=== PATIENT | male | born 1965 | race Caucasian/White ===

== ENCOUNTER 2016-09-13 13:37 | Outpatient (CLI) | payer OTHER ==
[2016-05-07 09:27] VITALS: BP 128/79
== END 2016-09-13 13:47 ==
LOC: CARD 13:37
PROVIDERS: ATTEND Internal Medicine Cardiovascular Disease
DX: I50.9 Heart failure, unspecified (principal)
CPT/HCPCS: 99213

== ENCOUNTER 2016-10-25 10:28 | Outpatient (CLI) | payer OTHER ==
[2016-05-07 09:27] VITALS: BP 128/79
== END 2016-10-25 11:00 ==
LOC: CARD 10:28
PROVIDERS: ATTEND Internal Medicine Cardiovascular Disease
DX: I50.9 Heart failure, unspecified (principal)
CPT/HCPCS: 99214

== ENCOUNTER 2016-11-08 11:38 | Outpatient (CLI) | payer OTHER ==
[2016-05-07 09:27] VITALS: BP 128/79
== END 2016-11-08 11:40 ==
LOC: CARD 11:38
PROVIDERS: ATTEND Internal Medicine Cardiovascular Disease
DX: I50.9 Heart failure, unspecified (principal)
CPT/HCPCS: 99214

== ENCOUNTER 2016-12-23 02:15 | Emergency (ER) | payer OTHER ==
[2016-12-23 02:33] VITALS: BP 130/80
--- NOTE | 2016-12-23 02:33 | ED Physician Documentation ---
General Adult - HISTORIAN Historian: patient - HPI Stated Complaint: dysuria Chief Complaint: General Adult Timing: still present Further Comments: yes (Pt is a 51 yo male with dysuria, mild retention x 2 days. No n/v. Malaise. Pt denies risk of STD's.) - ROS CONST: other (malaise) EYES/ENT: none CVS/RESP: none GI/: problems urinating MS/SKIN/LYMPH: none - PAST HX Past History: other (HTN, HLD) Allergies/Adverse Reactions: Allergies Allergy/AdvReac Type Severity Reaction Status Date / Time tramadol Allergy Verified 12/23/16 02:40 Home Medications: Ambulatory Orders Medication Instructions Recorded Aspirin [Ecotrin] 81 mg PO DAILY #30 tablet. 12/14/13 Furosemide [Furosemide] 40 mg PO DAILY 05/07/16 Carvedilol [Coreg] 25 mg PO BID 12/23/16 Clopidogrel Bisulfate [Clopidogrel] 75 mg PO D 12/23/16 Losartan Potassium [Losartan 50 mg PO D 12/23/16 Potassium] Lovastatin 20 mg PO D 12/23/16 Spironolactone [Spironolactone] 25 mg PO D 12/23/16 Sulfamethoxazole/Trimethoprim 1 each PO DAILY #14 tablet 12/23/16 [Bactrim Ds] - SOCIAL HX Smoking History: cigarettes - FAMILY HX Family History: No - VITAL SIGNS Vital Signs: Vital Signs Temp Pulse Resp BP Pulse Ox 128/79 05/07/16 09:22 - REVIEWED ASSESSMENTS Nursing Assessment Reviewed: Yes Vitals Reviewed: Yes Progress - Progress Progress: Rocephin 1 gm IM Rx Bactrim DS po bid x 7 days, 1st dose in ER. General Adult Physical Exam - PHYSICAL EXAM GENERAL APPEARANCE: no distress EENT: pharynx normal NECK: normal inspection, supple RESPIRATORY: no resp distress, chest non-tender, breath sounds normal CVS: reg rate & rhythm, heart sounds normal ABDOMEN: soft, normal bowel sounds BACK: normal inspection, no CVA tenderness SKIN: warm/dry, normal color EXTREMITIES: non-tender, normal range of motion, no evidence of injury NEURO: oriented X3, motor nml, sensation nml Discharge Clincal Impression: UTI (urinary tract infection) Qualifiers: Urinary tract infection type: site unspecified Hematuria presence: without hematuria Qualified Code(s): N39.0 - Urinary tract infection, site not specified Prescriptions: Sulfamethoxazole/Trimethoprim [Bactrim Ds] 1 each PO DAILY #14 tablet Referrals: George Sanchez MD [Primary Care Provider] - Home Medications: Ambulatory Orders Aspirin [Ecotrin] 81 mg PO DAILY #30 tablet. 12/14/13 Furosemide [Furosemide] 40 mg PO DAILY 05/07/16 Carvedilol [Coreg] 25 mg PO BID 12/23/16 Clopidogrel Bisulfate [Clopidogrel] 75 mg PO D 12/23/16 Losartan Potassium [Losartan Potassium] 50 mg PO D 12/23/16 Lovastatin 20 mg PO D 12/23/16 Spironolactone [Spironolactone] 25 mg PO D 12/23/16 Sulfamethoxazole/Trimethoprim [Bactrim Ds] 1 each PO DAILY #14 tablet 12/23/16 Condition: Good Disposition: 01 HOME, SELF-CARE Decision to Admit: NO Decision Time: 03:27
[2016-12-23 02:56] LABS: BASOPHILS % 0.2 (0.0-1.5); MEAN CORPUSCULAR HEMOGLOBIN 30.4 pg (28.0-34.0); MEAN CORPUSCULAR VOLUME 93.4 fl (80.0-100.0)
[2016-12-23 03:04] LABS: EOSINOPHILS % 0.2 % (0.0-6.8); MONOCYTES % 4.4 % (0.0-11.0); NEUTROPHILS # 10.7 # k/uL (1.4-7.7)
[2016-12-23 03:18] LABS: eGFR (African) > 60; eGFR (Non-African) > 60
[2016-12-23] MEDS ORDERED: SULFAMETHOXAZOLE/TRIMETHOPRIM 1 EACH TABLET PO ONE ×2 (03:23)
[2016-12-23] MEDS ORDERED: cefTRIAXone SODIUM 1 GM VIAL IM ONE (03:27)
[2016-12-23] MEDS ORDERED: Lidocaine 1% 5ml(IM or SUTURE)(PAIN CLINIC) IJ ONE (03:28)
[2016-12-23] MEDS ORDERED: Lidocaine 1% 5ml(IM or SUTURE)(PAIN CLINIC) ONE (03:30)
[2016-12-23 05:35] LABS: APPEARANCE,URINE CLOUDY (CLEAR); COLOR,URINE AMBER (YELLOW)
[2016-12-23 05:36] LABS: OCCULT BLOOD,URINE 2+ (NEGATIVE); PH URINE 5.5 (5.0 - 8.0)
== END 2016-12-23 03:40 | disposition home or self-care (01) ==
LOC: ED 02:15
DX: N39.0 Urinary tract infection, site not specified (principal)
CPT/HCPCS: 80053; 81002; 85025; 87086; 87186; 96372; 99283; A9270; J0696

== ENCOUNTER 2016-12-24 13:33 | Emergency (ER) | payer OTHER ==
[2016-12-24 14:07] LABS: APPEARANCE,URINE CLOUDY (CLEAR); COLOR,URINE YELLOW (YELLOW); OCCULT BLOOD,URINE TRACE-INTACT (NEGATIVE); PH URINE 5.5 (5.0 - 8.0)
--- NOTE | 2016-12-24 14:46 | ED Physician Documentation ---
Male Genitourinary Problems - HISTORIAN Historian: patient - HPI Stated Complaint: Unable to Urinate Chief Complaint: Male Genitourinary Problems Onset: hours (last able to urinate 18 hours ago) Duration: continues in ED Severity: moderate Further Comments: yes (Arely was diagnosed of having a UTI on Monday was started) - Associated Symptoms Problems Urinating: none, discomfort w/ urination, other (urinary) Testicular Pain: none Testicular Swelling: none Penile Pain: No Penile Swelling: No - ROS CONST: denies: fever, chills GI/: denies: nausea, vomiting - PAST HX Past History: enlarged prostate, hypertension, other (CAD) Cardiac Disease: CAD Surgeries/Procedures: TURP (times two.), other (PCI) Immunizations: referred to PCP Allergies/Adverse Reactions: Allergies Allergy/AdvReac Type Severity Reaction Status Date / Time tramadol Allergy Verified 12/23/16 02:40 Home Medications: Ambulatory Orders Medication Instructions Recorded Aspirin [Ecotrin] 81 mg PO DAILY #30 tablet. 12/14/13 Furosemide [Furosemide] 40 mg PO DAILY 05/07/16 Carvedilol [Coreg] 25 mg PO BID 12/23/16 Clopidogrel Bisulfate [Clopidogrel] 75 mg PO D 12/23/16 Losartan Potassium [Losartan 50 mg PO D 12/23/16 Potassium] Lovastatin 20 mg PO D 12/23/16 Spironolactone [Spironolactone] 25 mg PO D 12/23/16 Sulfamethoxazole/Trimethoprim 1 each PO DAILY #14 tablet 12/23/16 [Bactrim Ds] - SOCIAL HX Smoking History: less than 1 pack/day Alcohol Use: none Drug Use: none - FAMILY HX Family History: none - VITAL SIGNS Vital Signs: Vital Signs Temp Pulse Resp BP Pulse Ox 97.8 F 81 16 115/78 97 12/24/16 13:35 12/24/16 16:25 12/24/16 16:25 12/24/16 16:25 12/24/16 16:25 - REVIEWED ASSESSMENTS Nursing Assessment Reviewed: Yes Vitals Reviewed: Yes Progress - Results/Orders Results/Orders: when putting the cath in met resistance, had some difficulties with placement ED Results Lab/Radiology - Lab Results Lab Results: Lab Results 12/24/16 13:55 Urine Color Yellow (YELLOW) Urine Appearance Cloudy (CLEAR) Urine pH 5.5 (5.0 - 8.0) Ur Specific [place] 1.025 (1.010-1.030) Urine Protein Negative mg/dL mg/dL (NEGATIVE) Urine Ketones Negative mg/dL mg/dL (NEGATIVE) Urine Occult Blood Trace-intact H (NEGATIVE) Urine Nitrite Negative (NEGATIVE) Urine Bilirubin Negative (NEGATIVE) Urine Urobilinogen 1.0 Eu Eu (0.2-1.0) Ur Leukocyte Esterase 1+ H (NEGATIVE) Urine Glucose Negative mg/dL mg/dL (NEGATIVE) - Orders Orders: ED Orders Category Date Time Status Hernandez [Urinary catheterization] 1T Care 12/24/16 14:04 Active PSA PROSTATE SPECIFIC ANTIGEN Routine Lab 12/24/16 Ordered UA MACRO DIP ONLY Routine Lab 12/24/16 13:55 Completed URINALYSIS Routine Lab 12/24/16 14:58 Ordered Male Genitourinary Problems - EXAM General Appearance: no acute distress, alert Abdomen: non-tender, no organomegaly, tenderness (suprapubic) EENT: eye inspection normal, ENT inspection normal, pharynx normal, no signs of dehydration Neck: nml inspection Respiratory: no resp distress, chest non-tender, breath sounds normal. No: wheezes, rales, rhonchi CVS: reg rate & rhythm, heart sounds normal, equal pulses Back: non-tender, painless ROM Extremities: normal range of motion, non-tender, normal inspection Neuro/Psych: oriented X3, mood/affect nml, cognition normal Skin: warm/dry, normal color Discharge Clincal Impression: History of urinary retention Referrals: George Sanchez MD [Primary Care Provider] - 2 Days Additional Instructions: I will set up an appointment with a urologist for you. Leave hernandez cath in place , if you have any problems withit to let me know. Home Medications: Ambulatory Orders Aspirin [Ecotrin] 81 mg PO DAILY #30 tablet. 12/14/13 Furosemide [Furosemide] 40 mg PO DAILY 05/07/16 Carvedilol [Coreg] 25 mg PO BID 12/23/16 Clopidogrel Bisulfate [Clopidogrel] 75 mg PO D 12/23/16 Losartan Potassium [Losartan Potassium] 50 mg PO D 12/23/16 Lovastatin 20 mg PO D 12/23/16 Spironolactone [Spironolactone] 25 mg PO D 12/23/16 Sulfamethoxazole/Trimethoprim [Bactrim Ds] 1 each PO DAILY #14 tablet 12/23/16 Condition: Stable Decision to Admit: NO Date of Decison to Admit: 12/24/16 Decision Time: 16:07
[2016-12-24 16:28] VITALS: BP 115/78
== END 2016-12-24 16:10 ==
LOC: ED 13:33
DX: R33.9 Retention of urine, unspecified (principal)
CPT/HCPCS: 51702; 81002; 99283

== ENCOUNTER 2017-06-13 13:54 | Outpatient (CLI) | payer OTHER | END 2017-06-13 13:55 | LOC: CARD 13:54 | PROVIDERS: ATTEND Internal Medicine Cardiovascular Disease | DX: I50.20 Unspecified systolic (congestive) heart failure (principal); I25.10 Atherosclerotic heart disease of native coronary artery without angina pectoris; Q21.1 Atrial septal defect; I72.8 Aneurysm of other specified arteries; I25.3 Aneurysm of heart; Z72.0 Tobacco use; E78.5 Hyperlipidemia, unspecified; I10 Essential (primary) hypertension; G47.30 Sleep apnea, unspecified; E66.9 Obesity, unspecified; Z79.899 Other long term (current) drug therapy | CPT/HCPCS: 99213 ==

== ENCOUNTER 2017-07-09 21:04 | Emergency (ER) | payer OTHER ==
[2017-07-09] MEDS ORDERED: FUROSEMIDE 20 MG/2 ML VIAL IVP ONE (21:26)
[2017-07-09] MEDS ORDERED: [UNRECOGNIZED DRUG - OTHER] IV ONE (21:29)
[2017-07-09] MEDS ORDERED: SODIUM CHLORIDE 0.9% IV ONE (21:29)
[2017-07-09] MEDS: ENALAPRILAT DIHYDRATE 1.25 MG/1 ML ONE ×2 (21:34→21:40)
[2017-07-09 21:43] LABS: BASOPHILS % 0.4 (0.0-1.5); EOSINOPHILS % 1.1 % (0.0-6.8); MEAN CORPUSCULAR HEMOGLOBIN 29.2 pg (28.0-34.0); MEAN CORPUSCULAR VOLUME 92.5 fl (80.0-100.0); MONOCYTES % 4.4 % (0.0-11.0); NEUTROPHILS # 5.8 # k/uL (1.4-7.7)
[2017-07-09 22:11] LABS: eGFR (African) > 60; eGFR (Non-African) > 60
--- NOTE | 2017-07-09 22:36 | ED Physician Documentation ---
Dyspnea - HISTORIAN Historian: patient - HPI Stated Complaint: SOA Chief Complaint: Dyspnea Additional Information: out of meds x 1 week-did have 2-20mg lasix which took this pm w/ diuresis but concern due to leg edema and sob-out of meds bacause of finances Onset: days ago (this pm) Duration: continues in ED, better Initiating Event: out of meds. denies: upper respiratory illness, sports, exercise, environmental allergy Severity: mild, moderate Exacerbated By: exertion Associated Symptoms: none - ROS CONST: no problems EYES/ENT: denies: problems with vision GI/: none NEURO/PSYCH: denies: headache MS/SKIN/LYMPH: none, other (leg edema) - PAST HX Lung Disease: COPD, other (ischemic heart disease HTN fluid retentin) PE Risk Factors: hypertension, leg swelling Surgeries/Procedures: cardiac cath, cardiac stent Allergies/Adverse Reactions: Allergies Allergy/AdvReac Type Severity Reaction Status Date / Time tramadol Allergy Verified 07/09/17 21:30 Home Medications: Ambulatory Orders Medication Instructions Recorded Aspirin [Ecotrin] 81 mg PO DAILY #30 tablet. 12/14/13 Furosemide [Furosemide] 60 mg PO DAILY 05/07/16 Carvedilol [Coreg] 25 mg PO BID 12/23/16 Clopidogrel Bisulfate [Clopidogrel] 75 mg PO D 12/23/16 Losartan Potassium [Losartan 50 mg PO D 12/23/16 Potassium] Lovastatin 20 mg PO D 12/23/16 Spironolactone [Spironolactone] 25 mg PO D 12/23/16 - SOCIAL HX Smoking History: less than 1 pack/day Alcohol Use: none Drug Use: none - FAMILY HX Family History: no significant history - VITAL SIGNS Vital Signs: Vital Signs Temp Pulse Resp BP Pulse Ox 98.1 F 104 H 20 147/100 95 07/09/17 21:05 07/09/17 21:29 07/09/17 21:05 07/09/17 21:05 07/09/17 21:05 - REVIEWED ASSESSMENTS Nursing Assessment Reviewed: Yes Vitals Reviewed: Yes ED Results Lab/Radiology - Lab Results Lab Results: Lab Results 07/09/17 07/09/17 07/09/17 21:33 21:33 21:33 WBC 9.60 K/ul K/ul (4.00-12.00) RBC 4.94 M/ul M/ul (3.90-5.20) Hgb 14.5 g/dL g/dL (12.0-18.0) Hct 45.7 % % (37.0-53.0) MCV 92.5 fl fl (80.0-100.0) MCH 29.2 pg pg (28.0-34.0) MCHC 31.6 g/dL g/dL (30.0-36.0) RDW 13.6 % % (11.3-14.3) Plt Count 238 K/mm3 K/mm3 (130-400) Neut % (Auto) 60.0 % % (39.0-79.0) Lymph % (Auto) 33.0 % % (16.0-50.0) [place] % (Auto) 4.4 % % (0.0-11.0) Eos % (Auto) 1.1 % % (0.0-6.8) Baso % (Auto) 0.4 (0.0-1.5) Neut # (Auto) 5.8 # k/uL # k/uL (1.4-7.7) Lymph # (Auto) 3.2 # k/uL # k/uL (0.6-4.0) [place] # (Auto) 0.4 # k/uL # k/uL (0.0-0.9) Eos # (Auto) 0.1 # k/uL # k/uL (0.0-0.6) Baso # (Auto) 0.0 # k/uL # k/uL (0.0-0.5) Reactive Lymphs % 1.1 % % (0.0-5.0) Reactive Lymphs # 0.1 # k/uL # k/uL (0.0-0.8) PT 10.4 Seconds Seconds (9.4-11.6) INR 0.99 (0.9-1.2) Sodium 135 mmol/L L mmol/L (136-145) Potassium 3.8 mmol/L mmol/L (3.5-5.1) Chloride 100 mmol/L mmol/L (98-107) Carbon Dioxide 26 mmol/L mmol/L (22-30) BUN 13 mg/dL mg/dL (9-20) Creatinine 0.80 mg/dL mg/dL (0.66-1.25) Estimated Creat Clear 186 Est GFR ( Amer) > 60 (60 - ) Est GFR (Non-Af Amer) > 60 (60 - ) Glucose 111 mg/dL H mg/dL (74-106) Calcium 8.4 mg/dL mg/dL (8.4-10.2) Total Bilirubin 0.2 mg/dL mg/dL (0.2-1.3) AST 21 U/L U/L (15-46) ALT 32 U/L U/L (13-69) Alkaline Phosphatase 127 U/L H U/L (38-126) Total Protein 7.2 g/dL g/dL (6.3-8.2) Albumin 3.7 g/dL g/dL (3.5-5.0) - Orders Orders: ED Orders Category Date Time Status Continuous EKG monitoring Q1H Care 07/09/17 21:[address] IV Lock 1T Care 07/09/17 21:26 Active CHEST P.A.&LAT 2 VIEWS [RAD] Stat Exams 07/09/17 Taken CBC/PLATELET/DIFF Routine Lab 07/09/17 21:33 Completed CMP Routine Lab 07/09/17 21:33 Completed PT-INR Routine Lab 07/09/17 21:33 Completed Enalaprilat Dihydrate [Vasotec] Med 07/09/17 21:31 Discontinued 1.25 mg .ROUTE .STK-MED ONE Enalaprilat Dihydrate [Vasotec] 1.25 mg Med 07/09/17 21:29 Ordered 0.9 % Sodium Chloride [Sodium Chloride] 50 ml IV NOW Furosemide [Lasix] Med 07/09/17 21:26 Discontinued 20 mg IVP NOW ONE Dyspnea Physical Exam - EXAM General Appearance: mild distress EENT: eye inspection normal Neck: nml inspection Respiratory: breath sounds nml, speaks full sentences (pt hard of hearing) CVS: reg. rate & rhythm Abdomen: non-tender, no distention Skin: color nml, no rash Extremities: edema Neuro/Psych: oriented x3, motor nml, mood/affect nml Discharge Clincal Impression: unc htn, fluid retention, meds non compliance Referrals: Primary Doctor,No [Primary Care Provider] - 2 Days Comments: pt sig improved - urinary output sig - breathing better - will f/u w/pcp and will get meds Condition: Good Disposition: HOME, SELF-CARE Decision to Admit: NO Decision Time: 22:45
[2017-07-09 23:22] VITALS: BP 128/86
--- NOTE | 2017-07-10 05:18 | Diagnostic Imaging Report ---
ONDINA GUERRERO [facility] [address] [facility].[address] [address] Report Submission Date: Jul 09, 2017 10:13:22 PM PHOTOGRAPHIC SPECIALIST Patient Study Name: FAITH SALINAS Date: Jul 09, 2017 9:56:02 PM PHOTOGRAPHIC SPECIALIST Modality Type: CR Gender: M Description: CHEST : 69 Institution: [facility] Physician: ONDINA GUERRERO Chest PA and lateral views Clinical history: Dyspnea and cough Borderline heart shadow. No acute infiltrates or pleural effusion. No visible pneumothorax. Essentially normal bony thorax . Impression: No active pulmonary pathology. Electronically signed on Jul 09, 2017 10:13:22 PM PHOTOGRAPHIC SPECIALIST by: George CARR
== END 2017-07-09 22:55 | disposition home or self-care (01) ==
LOC: ED 21:04
DX: R60.1 Generalized edema (principal); I10 Essential (primary) hypertension
CPT/HCPCS: 71020; 80053; 85025; 85610; 93005; J1940; J3490; 96374; 96375; 99283; S1016

== ENCOUNTER 2017-09-05 14:16 | Outpatient (CLI) | payer OTHER | END 2017-09-05 14:17 | LOC: CARD 14:16 | PROVIDERS: ATTEND Internal Medicine Cardiovascular Disease | DX: I50.9 Heart failure, unspecified (principal); I42.9 Cardiomyopathy, unspecified; I25.10 Atherosclerotic heart disease of native coronary artery without angina pectoris; Q21.1 Atrial septal defect; Z72.0 Tobacco use; E78.5 Hyperlipidemia, unspecified; I10 Essential (primary) hypertension; G47.30 Sleep apnea, unspecified; E66.9 Obesity, unspecified; Z79.899 Other long term (current) drug therapy | CPT/HCPCS: 99213 ==

== ENCOUNTER 2017-09-09 15:17 | Emergency (ER) | payer OTHER ==
--- NOTE | 2017-09-09 16:01 | ED Physician Documentation ---
Dyspnea - HISTORIAN Historian: patient - HPI Stated Complaint: SOA Chief Complaint: Dyspnea Additional Information: prog sob past few weeks-under tx chf takes lasix 80/day. stopped cigs 3 d ago Duration: continues in ED, worse Initiating Event: denies: upper respiratory illness, out of meds, sports, exercise Severity: moderate Exacerbated By: exertion, laying flat (unable lie flat) Further Comments: yes (pt hard of hearing) - ROS CONST: no problems GI/: none, other (noct 1-2 times takes lasix am) - PAST HX Lung Disease: COPD, other (chf htn) Surgeries/Procedures: cardiac stent Allergies/Adverse Reactions: Allergies Allergy/AdvReac Type Severity Reaction Status Date / Time tramadol Allergy Verified 09/09/17 15:34 Home Medications: Ambulatory Orders Medication Instructions Recorded Aspirin [Ecotrin] 81 mg PO DAILY #30 tablet. 12/14/13 Furosemide [Furosemide] 40 mg PO BID 05/07/16 Carvedilol [Coreg] 25 mg PO BID 12/23/16 Clopidogrel Bisulfate [Clopidogrel] 75 mg PO D 12/23/16 Losartan Potassium [Losartan 50 mg PO D 12/23/16 Potassium] Lovastatin 20 mg PO D 12/23/16 Spironolactone [Spironolactone] 25 mg PO D 12/23/16 - SOCIAL HX Smoking History: cigarettes (quit 3 d ago) Alcohol Use: none Drug Use: none - FAMILY HX Family History: no significant history - VITAL SIGNS Vital Signs: Vital Signs Temp Pulse Resp BP Pulse Ox 98.6 F 88 24 102/58 95 09/09/17 15:38 09/09/17 15:38 09/09/17 15:38 09/09/17 15:38 09/09/17 15:38 - REVIEWED ASSESSMENTS Nursing Assessment Reviewed: Yes Vitals Reviewed: Yes ED Results Lab/Radiology - Radiology Radiology Impressions: cxr = mild chf - Orders Orders: ED Orders Category Date Time Status CHEST P.A.&LAT 2 VIEWS [RAD] Stat Exams 09/09/17 Ordered BNP [NT-proBNP] Stat Lab 09/09/17 Ordered CBC/PLATELET/DIFF Routine Lab 09/09/17 Ordered CMP Routine Lab 09/09/17 Ordered EKG WITH COMPARISON Stat Ther 09/09/17 Ordered Dyspnea Physical Exam - EXAM General Appearance: mild distress EENT: eye inspection normal Neck: nml inspection Respiratory: rales (s basal no jvd). No: breath sounds nml CVS: reg. rate & rhythm. No: no murmur Abdomen: non-tender, no ascites. No: no distention, guarding, rebounding Skin: color nml, decubitus. No: cyanosis, diaphoresis, pallor, ecchymosis Extremities: non-tender, normal range of motion. No: no edema (gr2) Neuro/Psych: oriented x3, motor nml, sensation nml, mood/affect nml Discharge Clincal Impression: exab chf, suspect meds non compliant, Nicotine abuse Referrals: Primary Doctor,No [Primary Care Provider] - 2 Days Comments: reduce salt inc lasix to 100mg daily from 80 mg daily start spironolactone as ordered. see DR ARAGON very soon Condition: Fair Disposition: 01 HOME, SELF-CARE Decision to Admit: NO Decision Time: 17:03
[2017-09-09 16:15] LABS: BASOPHILS % 0.4 (0.0-1.5); EOSINOPHILS % 1.8 % (0.0-6.8); MEAN CORPUSCULAR HEMOGLOBIN 29.4 pg (28.0-34.0); MEAN CORPUSCULAR VOLUME 88.4 fl (80.0-100.0); MONOCYTES % 4.7 % (0.0-11.0); NEUTROPHILS # 4.8 # k/uL (1.4-7.7)
--- NOTE | 2017-09-09 16:28 | Diagnostic Imaging Report ---
[facility] [address] [facility].[address] [address] Report Submission Date: Sep 09, 2017 4:26:35 PM NAIL EXPERT Patient Study Name: FAITH SALINAS Date: Sep 09, 2017 4:14:28 PM NAIL EXPERT Modality Type: CR Gender: M Description: CHEST : 69 Institution: [facility] Physician: ONDINA GUERRERO Examination: PA and lateral chest. History: Evaluate lung farias. Comparison exam: 09 July 2017 Findings: PA lateral chest demonstrate a mildly hypoventilated inspiratory effort resulting in mild crowding of the cardiac and mediastinal silhouette. Mild basilar parenchymal fullness. No blunting of the costophrenic margins. Osseous structures are appropriate for age. Impression: Mild basilar parenchymal fullness - mild infiltrate versus secondary to poor inspiratory effort. Correlate clinically Electronically signed on Sep 09, 2017 4:26:35 PM NAIL EXPERT by: Mark CARR
[2017-09-09 16:34] LABS: eGFR (African) > 60; eGFR (Non-African) > 60
[2017-09-09 17:23] VITALS: BP 128/79
== END 2017-09-09 17:15 | disposition home or self-care (01) ==
LOC: ED 15:17
DX: I50.9 Heart failure, unspecified (principal); F17.210 Nicotine dependence, cigarettes, uncomplicated
CPT/HCPCS: 71020; 80053; 83880; 85025; 99283; S1016

== ENCOUNTER 2017-09-12 11:27 | Outpatient (CLI) | payer OTHER | END 2017-09-12 11:30 | LOC: CARD 11:27 | PROVIDERS: ATTEND Internal Medicine Cardiovascular Disease | DX: I50.9 Heart failure, unspecified (principal); I42.9 Cardiomyopathy, unspecified; I25.10 Atherosclerotic heart disease of native coronary artery without angina pectoris; Q21.1 Atrial septal defect; Z72.0 Tobacco use; E78.5 Hyperlipidemia, unspecified; I10 Essential (primary) hypertension; G47.30 Sleep apnea, unspecified; E66.9 Obesity, unspecified | CPT/HCPCS: 99213 ==

== ENCOUNTER 2017-12-19 11:48 | Outpatient (CLI) | payer OTHER ==
[2017-12-19 13:46] LABS: eGFR (African) > 60; eGFR (Non-African) > 60
== END 2017-12-19 11:50 ==
LOC: CARD 11:48
PROVIDERS: ATTEND Internal Medicine Cardiovascular Disease
DX: I50.9 Heart failure, unspecified (principal); I25.10 Atherosclerotic heart disease of native coronary artery without angina pectoris; Q21.1 Atrial septal defect; Z72.0 Tobacco use; E78.5 Hyperlipidemia, unspecified; G47.30 Sleep apnea, unspecified; E66.9 Obesity, unspecified; Z79.899 Other long term (current) drug therapy; R05 Cough
CPT/HCPCS: 36415; 80048; 99213

== ENCOUNTER → 2019-02-09 | Emergency (ER) | payer OTHER ==
[2018-12-22 14:38] VITALS: BP 111/64
== END ==
LOC: ED 14:45
DX: K02.9 Dental caries, unspecified (principal)
CPT/HCPCS: 99281; 99282